=== PATIENT | female | born 1965 | race Caucasian/White ===

== ENCOUNTER 2022-02-07 11:48 | Emergency (ER) | payer MEDICAID, OTHER ==
[~2022-02-07] VITALS: Ht 162.6 cm; Wt 78.6 kg
[2022-02-07 11:50] VITALS: BP 147/76
[2022-02-07] MEDS ORDERED: HYDR-3965 PO (12:07)
== END 2022-02-07 12:29 | disposition home or self-care (01) ==
LOC: ER 11:49
DX: M25.572 Pain in left ankle and joints of left foot (principal); Z79.899 Other long term (current) drug therapy
CPT/HCPCS: 99284